=== PATIENT | female | born 1995 | race Caucasian/White ===

== ENCOUNTER 2019-05-19 16:56 | Emergency (ER) | payer BC, OTHER ==
[~2019-05-19] VITALS: Ht 160 cm; Wt 96.8 kg
[~2019-05-19 16:56] MED LIST: ARIP2TAB17 PO; BECL8.7A INH; IBUP-1542 PO
[2019-05-19 16:58] VITALS: Ht 160 cm; Wt 96.8 kg
[2019-05-19] MEDS ORDERED: SOD CHLORIDE 0.9% 1,000 ML IV STA (17:22)
[2019-05-19] MEDS ORDERED: KETOROLAC 30 MG INJ IV STA (19:27)
--- NOTE | 2019-05-19 19:32 | ERD ---
ER Documentation Chief Complaint Chief Complaint PT reports R arm waekness x 1 hour, pt c/o back pain HPI 24-year-old female presents with sensation of weakness and numbness in her right upper extremity and right leg starting today while driving. She has a history of trauma or inciting events. She has mild bitemporal headache. She denies visual changes, nausea vomiting, fevers, cough, shortness breath or chest pain. Patient gives a history of cannabinoid hyperemesis syndrome self diagnosed. She subsequently stopped smoking marijuana approximately 5 days ago. Patient denies any of these symptoms prior. ROS All systems reviewed and are negative except as per history of present illness. Medications Home Meds Active Scripts Ibuprofen* (Motrin*) 600 Mg Tab, 600 MG PO Q6, #15 TAB Prov:DRE STERLING MD 05/19/19 Aripiprazole* (Abilify*) 2 Mg Tablet, 2.5 MG PO DAILY, #14 TAB Prov:LIDYA EUBANKS DO 08/28/16 Reported Medications Beclomethasone Dip* (Qvar 40*) 7.3 Gm Inha, 1 PUFF INH BID, #1 INHALER 08/27/16 Allergies Allergies: Coded Allergies: No Known Allergy (Unverified , 08/27/16) PMhx/Soc Medical and Surgical Hx: pt denies Medical Hx, pt denies Surgical Hx History of Surgery: No Hx Respiratory Disorders: Yes (Asthma) Hx Cardiac Disorders: No Hx Psychiatric Problems: No Hx Miscellaneous Medical Probl: No Hx Alcohol Use: Yes Hx Substance Use: Yes Hx Tobacco Use: Yes Smoking Status: Never smoker FmHx Family History: No diabetes, No coronary disease, No other Physical Exam Vitals Vital Signs Date Temp Pulse Resp B/P (MAP) Pulse Ox O2 O2 Flow FiO2 Time Delivery Rate 05/19/19 98.8 107 24 156/77 98 16:58 (103) Physical Exam Const: No acute distress Head: Atraumatic Eyes: Normal Conjunctiva ENT: Normal External Ears, Nose and Mouth. Neck: Full range of motion. No meningismus. Resp: Clear to auscultation bilaterally Cardio: Regular rate and rhythm, no murmurs Abd: Soft, non tender, non distended. Normal bowel sounds Skin: No petechiae or rashes Back: No midline or flank tenderness Ext: No cyanosis, or edema Neur: Awake and alert. Patient describes weakness and numbness in her right upper extremity although she has no appreciable deficits. She has normal gait. Psych: Normal Mood and Affect Result Diagram: 05/19/19 1729 05/19/19 1729 Results 24 hrs Laboratory Tests Test 05/19/19 17:29 05/19/19 17:36 05/19/19 17:38 White Blood Count 6.4 10^3/ul Red Blood Count 4.95 10^6/ul Hemoglobin 13.9 g/dl Hematocrit 42.6 % Mean Corpuscular Volume 86.1 fl Mean Corpuscular Hemoglobin 28.1 pg Mean Corpuscular Hemoglobin Concent 32.6 g/dl Red Cell Distribution Width 12.2 % Platelet Count 227 10^3/UL Mean Platelet Volume 11.0 fl Immature Granulocytes % 0.300 % Neutrophils % 62.9 % Lymphocytes % 24.7 % Monocytes % 11.2 % Eosinophils % 0.6 % Basophils % 0.3 % Nucleated Red Blood Cells % 0.0 /100WBC Immature Granulocytes # 0.020 10^3/ul Neutrophils # 4.1 10^3/ul Lymphocytes # 1.6 10^3/ul Monocytes # 0.7 10^3/ul Eosinophils # 0.0 10^3/ul Basophils # 0.0 10^3/ul Nucleated Red Blood Cells # 0.0 10^3/ul Urine Color KRISTEN Urine Clarity CLOUDY Urine pH 5.0 Urine Specific [place] 1.030 Urine Ketones 1+ mg/dL Urine Nitrite NEGATIVE mg/dL Urine Bilirubin NEGATIVE mg/dL Urine Urobilinogen NEGATIVE mg/dL Urine Leukocyte Esterase TRACE Rohan/ul Urine Microscopic RBC 1 /HPF Urine Microscopic WBC 5 /HPF Urine Squamous Epithelial Cells MODERATE /HPF Urine Bacteria FEW /HPF Urine Mucus MANY /HPF Urine Hemoglobin 2+ mg/dL Urine Glucose NEGATIVE mg/dL Urine Total Protein 1+ mg/dl Sodium Level 140 mmol/L Potassium Level 3.5 mmol/L Chloride Level 103 mmol/L Carbon Dioxide Level 25 mmol/L Anion Gap 12 Blood Urea Nitrogen 9 mg/dl Creatinine 0.79 mg/dl Est Glomerular Filtrat Rate mL/min > 60 mL/min Glucose Level 99 mg/dl Calcium Level 10.1 mg/dl Total Bilirubin 0.7 mg/dl Direct Bilirubin 0.00 mg/dl Indirect Bilirubin 0.7 mg/dl Aspartate Amino Transf (AST/SGOT) 40 IU/L Alanine Aminotransferase (ALT/SGPT) 39 IU/L Alkaline Phosphatase 75 IU/L C-Reactive Protein 0.7 mg/dl Total Protein 9.4 g/dl Albumin 5.1 g/dl Globulin 4.30 g/dl Albumin/Globulin Ratio 1.18 Bedside Urine pH (LAB) 6.0 Bedside Urine Protein (LAB) 2+ Bedside Urine Glucose (UA) Negative Bedside Urine Ketones (LAB) 2+ Bedside Urine Blood 1+ Bedside Urine Nitrite (LAB) Negative Bedside Urine Leukocyte Esterase (L Negative POC Beta HCG, Qualitative NEGATIVE Current Medications Medications Dose Sig/Spenser Start Time Status Last (Trade) Ordered Route PRN Stop Time Admin Dose Reason Admin Sodium 1,000 ml @ Q1H STAT 05/19/19 DC 05/19/19 Chloride 1,000 mls/hr IV 17:22 05/19/19 17:35 18:21 Ketorolac 30 mg ONCE STAT 05/19/19 DC Tromethamine IV 19:27 05/19/19 (Toradol) 19:28 Procedures/MDM Patient presents with headache, right upper extremity and right lower extremity sensation of numbness and weakness. She has no obvious significant deficits on exam. Nonetheless IV was obtained. CBC and CMP and CRP showed no acute abnormalities. Urine shows no acute abnormalities. CT brain and cervical spine read as normal by the radiologist. Patient given Toradol 30 mg IV. Patient is uncertain cause of symptoms. She may be having radicular symptoms. There is no signs of significant deficits to suggest transverse myelitis, epidural abscess, cauda equina syndrome, no intracranial lesions. Certainly more insidious causes such as MS are in the differential therefore primary care follow-up and possible neurology evaluation for persistent symptoms advised. She exhibits return for fevers, cough, shortness of breath, new worsening symptoms or as directed. The patient was stable with no new complaints during the ER course. Clinically, there is no current evidence to suggest meningitis, sepsis, acute abdomen, pneumonia, stroke, acute coronary syndrome, pulmonary embolism, aortic dissection or any other emergent condition appearing to require further evaluation or hospitalization. Patient counseled regarding my diagnostic impression and care plan. Prior to discharge all questions answered. Pt agrees with treatment plan and understands strict return precautions. Pt is instructed to follow up with primary care provider within 24-48 hours. Precautionary instru ctions provided including instructions to return to the ER if not improving or for any worsening or changing symptoms or concerns. Disclaimer: Inadvertent spelling and grammatical errors are likely due to EHR/dictation software use and do not reflect on the overall quality of patient care. Also, please note that the electronic time recorded on this note does not necessarily reflect the actual time of the patient encounter. Departure Diagnosis: Primary Impression: Numbness Condition: Stable Patient Instructions: Paraesthesias, Symptoms With Uncertain Cause Referrals: DOCTOR,NOT ON STAFF (PCP) Additional Instructions: Medications normal today. Uncertain cause of symptoms. See primary doctor for follow-up. Consider neurology evaluation for persistent or worsening symptoms. Recheck otherwise for fevers, new or additional symptoms. DRE STERLING MD May 19, 2019 19:32
[2019-05-19 19:41] VITALS: BP 130/61; PULSE 66; RESP 18
== END 2019-05-19 19:42 | disposition home or self-care (01) ==
LOC: FTE 16:56
DX: R20.0 Anesthesia of skin (principal); J45.909 Unspecified asthma, uncomplicated; Z87.891 Personal history of nicotine dependence
CPT/HCPCS: 36415; 70450; 72125; 80053; 81001; 81025; 85025; 85651; 86140; 96360; 99285; J7030; 81003

== ENCOUNTER 2019-06-15 19:58 | Emergency (ER) | payer OTHER, BC ==
[~2019-06-15] VITALS: Ht 157.5 cm; Wt 95.0 kg
[~2019-06-15 19:58] MED LIST changes: +OMEP20CA16 PO
[2019-06-15 20:00] VITALS: BP 131/73; PULSE 79; RESP 18; Ht 157.5 cm; Wt 95.0 kg
[2019-06-15] MEDS ORDERED: LIDOCAINE/MYLANTA 40 ML BTL PO ONE (21:00)
[2019-06-15] MEDS ORDERED: FAMOTIDINE 20 MG TAB PO ONE (21:00)
== END 2019-06-15 21:35 | disposition home or self-care (01) ==
LOC: FTE 19:58
DX: R10.13 Epigastric pain (principal); J45.909 Unspecified asthma, uncomplicated; F17.210 Nicotine dependence, cigarettes, uncomplicated
CPT/HCPCS: 81003; 81025; 99283